=== PATIENT | male | born 1985 | race Caucasian/White ===

== ENCOUNTER 2018-06-30 19:20 | Emergency (ER) | payer SELFPAY ==
[~2018-06-30] VITALS: Ht 177.8 cm; Wt 81.6 kg
[2018-06-30 19:24] VITALS: BP 132/62
[2018-06-30] MEDS ORDERED: FLUORESCEIN OPTH STRIP 0.6 MG OP ONE (19:45)
[2018-06-30 22:05] VITALS: BP 128/61
== END 2018-06-30 22:05 | disposition home or self-care (01) ==
LOC: MED 19:20
DX: S05.01XA Injury of conjunctiva and corneal abrasion without foreign body, right eye, initial encounter (principal); F17.200 Nicotine dependence, unspecified, uncomplicated; X58.XXXA Exposure to other specified factors, initial encounter; Y93.89 Activity, other specified; Y92.89 Other specified places as the place of occurrence of the external cause; Y99.8 Other external cause status
CPT/HCPCS: 99283

== ENCOUNTER 2019-05-25 19:24 | Emergency (ER) | payer SELFPAY ==
[~2019-05-25] VITALS: Ht 175.3 cm; Wt 73.5 kg
[2019-05-25 19:40] VITALS: BP 139/94
[2019-05-25] MEDS: FLUORESCEIN OPTH STRIP 0.6 MG OP ONE (23:18)
[2019-05-25] MEDS: TETRACAINE HCL/PF 0.5% OPTH 4 ML BTL OP ONE (23:19)
[2019-05-25 23:46] VITALS: BP 129/88
== END 2019-05-25 23:46 | disposition home or self-care (01) ==
LOC: MED 19:24
DX: S05.01XA Injury of conjunctiva and corneal abrasion without foreign body, right eye, initial encounter (principal); F17.200 Nicotine dependence, unspecified, uncomplicated; Z71.6 Tobacco abuse counseling; X58.XXXA Exposure to other specified factors, initial encounter; Y93.89 Activity, other specified; Y92.89 Other specified places as the place of occurrence of the external cause; Y99.8 Other external cause status
CPT/HCPCS: 99283